=== PATIENT | female | born 1940 | race African-American/Black ===

== ENCOUNTER 2019-10-26 19:58 | Emergency (ER) | payer MEDICARE, MEDICAID ==
[2019-10-26] MEDS ORDERED: NORMAL SALINE 1000 ML 1,000 ML IV ONE (21:21)
--- NOTE | 2019-10-26 21:32 | ER Document Report ---
ED General - General Chief Complaint: Altered Mental Status Stated Complaint: POSSIBLE DEHYDRATION Time Seen by Provider: 10/26/19 21:20 Primary Care Provider: HUGH SCOTT MD [Primary Care Provider] - 10/28/19 TRAVEL OUTSIDE OF THE [place] IN LAST 30 DAYS: No - HPI Notes: Patient is an 79-year-old female with a history of hypertension, thyroid disease, dementia presents with son for possible altered mental status. Son states that she has not been eating all weekend and believes that she may be dehydrated. He noticed that she was acting a little "off." Patient's son ates that since they have been here she has been eating and drinking and is acting and behaving normally again. Patient has no concerns or complaints. She is not complaining of any pain. No recent illness. Per family/patient: Denies any headache, fever, head injury, neck pain, changes in vision/speech/hearing, URI, sore throat, chest pain, palpitations, syncope, cough, shortness of breath, wheeze, dyspnea, abdominal pain, nausea/vomiting/diarrhea, urinary retention, dysuria, hematuria, loss of control of bowel or bladder, numbness/tingling, saddle anesthesia, muscle paralysis/weakness, or rash. - Related Data Allergies/Adverse Reactions: No Known Allergies Allergy (Unverified 09/08/13 12:36) Home Medications: pt has meds Past Medical History - General Information source: Patient, Relative - Social History Smoking Status: Former Smoker Chew tobacco use (# tins/day): No Frequency of alcohol use: None Drug Abuse: None Family History: Reviewed & Not Pertinent Patient has suicidal ideation: No Patient has homicidal ideation: No - Past Medical History Cardiac Medical History: Reports: Hx Hypertension Denies: Hx Heart Attack Pulmonary Medical History: Denies: Hx Asthma Neurological Medical History: Denies: Hx Cerebrovascular Accident, Hx Seizures GI Medical History: Denies: Hx Hepatitis, Hx Hiatal Hernia, Hx Ulcer Infectious Medical History: Denies: Hx Hepatitis Past Surgical History: Denies: Hx Mastectomy, Hx Open Heart Surgery, Hx Pacemaker Review of Systems - Review of Systems -: Yes All other systems reviewed and negative Physical Exam - Vital signs Vitals: Temp Resp BP Pulse Ox 98.8 F 20 148/97 H 96 10/26/19 20:11 10/26/19 20:11 10/26/19 20:11 10/26/19 20:11 - Notes Notes: PHYSICAL EXAMINATION: GENERAL: Well-appearing, well-nourished and in no acute distress. A&Ox2. Answe rs questions appropriately. Pleasant, happy. HEAD: Atraumatic, normocephalic. Non-tender. EYES: Pupils equal round and reactive to light, extraocular movements intact, sclera anicteric, conjunctiva are normal. No nystagmus. ENT: Nares patent and without discharge. oropharynx clear without exudates. No tonsilar hypertrophy or erythema. Moist mucous membranes. NECK: Normal range of motion, supple without lymphadenopathy. No rigidity/meningismus. No midline tenderness. LUNGS: Breath sounds clear to auscultation bilaterally and equal. No wheezes rales or rhonchi. HEART: Regular rate and rhythm without murmurs, rubs, gallops. ABDOMEN: Soft, nontender, nondistended abdomen. No guarding, no rebound. Normal bowel sounds present. No CVA tenderness bilaterally. Musculoskeletal: Ext b/l: FROM to passive/active. Strength 5+/5. No deficits noted. No bony tenderness of extremities. Extremities: No cyanosis, clubbing, or edema b/l. Peripheral pulses 2+. Capillary refill less than 2 seconds. NEUROLOGICAL: NIH 0. GCS 15. Cranial nerves grossly intact. Normal speech. Normal sensory, motor exams. PSYCH: Normal mood, normal affect. SKIN: Warm, Dry, normal turgor, no rashes or lesions noted. Course - Re-evaluation Re-evalutation: 10/27/19 Patient is an afebrile, well-hydrated, 79-year-old female who presents with multifocal pneumonia. Vitals are acceptable without significant tachycardia, tachypnea, hypoxia. PE is otherwise unremarkable. Patient's lungs are generally clear to auscultation bilaterally. General labs are currently acceptable. Her thyroid lab/med will need further eval'd by her PCM for any possible med adjustment. Influenza negative. CT head unremarkable. Patient was given fluids through IV. She has been tolerating p.o. without difficulty and is nontoxic-appearing. CT with contrast was ordered of the chest after obtaining a chest x-ray which showed possible aneurysm and questionable bilateral opacities. CT does reveal findings suspicious for multifocal pneumonia. She does have a mid ascending thoracic aortic dilatation measuring 4 cm in the descending is mildly aneurysmal at 3.1 cm. Patient is otherwise not having any chest pain, shortness of breath, or dyspnea. She has not had any other URI symptoms or fever. Pt's presentation is not convincing for COVID. She also has no known exposures. Pt usually never leaves her home as is. Reviewed with Dr. Bruno who is in agreement with dispo/plan. Son feels competent to monitor at home. She does clinically meet inpatient management at this time. She is at baseline with her mentation/behavior. Son states he can call tomorrow to set up a f/u this week with her PCM. They are to return to the ED with any other worsening/concerning symptoms. Family in agreement. - Vital Signs Vital signs: Temp Pulse Resp BP Pulse Ox 98.8 F 72 20 150/89 H 96 10/26/19 20:11 10/26/19 23:09 10/26/19 23:09 10/26/19 23:09 10/26/19 23:09 - Laboratory Result Diagrams: 10/26/19 20:30 10/26/19 20:30 Laboratory results interpreted by me: 10/26/19 10/26/19 10/26/19 20:30 20:30 20:30 RBC 3.40 L Hgb 10.0 L Hct 30.5 L RDW 15.1 H BUN 47 H Creatinine 1.88 H Est GFR ( Amer) 31 L Est GFR (MDRD) Non-Af 26 L AST 44 H Albumin 3.4 L TSH 0.12 L Urine Protein Urine Urobilinogen Urine Ascorbic Acid 10/26/19 22:20 RBC Hgb Hct RDW BUN Creatinine Est GFR ( Amer) Est GFR (MDRD) Non-Af AST Albumin TSH Urine Protein 100 H Urine Urobilinogen 2.0 H Urine Ascorbic Acid 40 H Discharge - Discharge Clinical Impression: Multifocal pneumonia, Thoracic aortic aneurysm without rupture Condition: Stable Disposition: HOME, SELF-CARE Additional Instructions: Please bring your CT report to the family doctor for further management. Points include the mild thoracic aneurysm and bilateral multifocal pneumonia. She does have showing chronic kidney disease so we are using doxycycline as her antibiotic of choice at this time. Have the family doctor review her thyroid lab as well and see if med adjustment is necessary. Her vitals have been acceptable here. No fevers. Maintain adequate fluid intake tylenol/ibuprofen as needed alternating every 3 hours for fever/body ache over the counter cold medication as needed for symptoms Humidified air may help Wash your hands regularly Wear a mask when coughing F/u: with your PCM in 2-3 days for a recheck Return to the ED with any fever, altered mental status/behavior, chest pain, palpitations, syncope, headache, neck pain/stiffness, shortness of breath, chest pains, wheezing, drooling, trouble swallowing/breathing, abdominal pain, n/v/d, rash, or worsening/concerning symptoms otherwise. Prescriptions: Doxycycline Hyclate 100 mg PO BID #20 tablet.dr Forms: Elevated Blood Pressure Referrals: HUGH SCOTT MD [Primary Care Provider] - 10/28/19
[2019-10-26 21:34] LABS: ALBUMIN 3.4 g/dL (3.5-5.0); ALKALINE PHOSPHATASE 116 U/L (38-126); ANION GAP 7 (5-19); ASPARTATE AMINO TRANSFERASE 44 U/L (14-36); BILIRUBIN,DIRECT 0.2 mg/dL (0.0-0.4); BILIRUBIN,TOTAL 0.5 mg/dL (0.2-1.3); BLOOD UREA NITROGEN 47 mg/dL (7-20); CALCIUM 9.3 mg/dL (8.4-10.2); CARBON DIOXIDE 30 mmol/L (22-30); CHLORIDE 106 mmol/L (98-107); GLUCOSE 96 mg/dL (75-110); POTASSIUM 4.2 mmol/L (3.6-5.0); TOTAL PROTEIN 7.2 g/dL (6.3-8.2)
[2019-10-26 21:39] LABS: ABSOLUTE EOSINOPHILS # (AUTO) 0.3 10^3/uL (0.0-0.6); ABSOLUTE LYMPHOCYTES (AUTO) 1.5 10^3/uL (0.5-4.7); ABSOLUTE MONOCYTES (AUTO) 0.7 10^3/uL (0.1-1.4); ABSOLUTE NEUT (AUTO) 6.5 10^3/uL (1.7-8.2); BASOPHILS % (AUTO) 0.4 % (0-2); EOSINOPHILS % (AUTO) 2.9 % (0-6); HEMATOCRIT 30.5 % (36.0-47.0); LYMPHOCYTES % (AUTO) 16.5 % (13-45); MEAN CORPUSCULAR HEMOGLOBIN 29.5 pg (27.0-33.4); MEAN CORPUSCULAR HGB CONC 32.9 g/dL (32.0-36.0); MEAN CORPUSCULAR VOLUME 90 fl (80-97); MONOCYTES % (AUTO) 7.5 % (3-13); PLATELET COUNT 344 10^3/uL (150-450); RED CELL DISTRIBUTION WIDTH 15.1 % (11.5-14.0); SEGMENTED NEUTROPHILS % (AUTO) 72.7 % (42-78); TOTAL CELLS COUNTED % (AUTO) 100 %; WHITE BLOOD COUNT 8.9 10^3/uL (4.0-10.5)
--- NOTE | 2019-10-26 21:56 | RADIOLOGY REPORT (SQ) ---
EXAM DESCRIPTION: CT HEAD WITHOUT IV CONTRAST COMPLETED DATE/TME: 10/26/2019 21:20 CLINICAL HISTORY: 79 years, Female, altered mental status COMPARISON: None. TECHNIQUE: Noncontrast CT of the head was acquired. Coronal and sagittal reformations were created. Images stored on PACS. All CT scanners at this facility use dose modulation, iterative reconstruction, and/or weight based dosing when appropriate to reduce radiation dose to as low as reasonably achievable (ALARA). [facility]: Dose Right [facility]: CareDose [facility]: Dose Right [facility]: Teradose 4D [facility]: [employer] LIMITATIONS: None. FINDINGS: Evaluation of the brain parenchyma reveals mild periventricular and patchy subcortical white matter low attenuation. No acute intracranial hemorrhage, mass effect, or extra-axial fluid is seen. The ventricles and sulcal spaces are mildly enlarged. Globes and orbits show no acute abnormality. Paranasal sinuses and mastoid air cells are clear. Calcifications are evident about the parasellar carotid arteries. No depressed skull fractures. IMPRESSION: No acute intracranial hemorrhage or mass effect. Mild chronic microvascular ischemic change with generalized atrophy. TECHNICAL DOCUMENTATION: Quality ID # 436: Final reports with documentation of one or more dose reduction techniques (e.g., Automated exposure control, adjustment of the mA and/or kV according to patient size, use of iterative reconstruction technique) copyright 2011 [employer]- All Rights Reserved
--- NOTE | 2019-10-26 22:11 | RADIOLOGY REPORT (SQ) ---
Chest one view on 10/26/2019 at 9:32 PM CLINICAL INDICATION: Altered mental status COMPARISON: None FINDINGS: There is significant prominence and tortuosity of the thoracic aorta suggesting thoracic aortic aneurysm. CT of the chest with contrast would be useful to better evaluate. There are mild patchy bilateral opacities consistent with edema and/or pneumonia. Heart is upper limits of normal for size. Degenerative changes are noted in the shoulders. IMPRESSION: 1. Findings suggesting thoracic aortic aneurysm, follow-up chest CT with contrast would be useful to better evaluate. 2. Mild patchy bilateral opacities consistent with mild edema and/or pneumonia.
[2019-10-26 22:48] LABS: APPEARANCE,URINE SLIGHTLY-CLOUDY; BILIRUBIN,URINE NEGATIVE (NEGATIVE); COLOR,URINE YELLOW; GLUCOSE, URINE NEGATIVE (NEGATIVE); KETONES,URINE NEGATIVE (NEGATIVE); PROTEIN,URINE 100 mg/dL (NEGATIVE); URINE SPECIFIC GRAVITY 1.016
--- NOTE | 2019-10-26 23:21 | RADIOLOGY REPORT (SQ) ---
EXAM DESCRIPTION: CT CHEST WITH IV CONTRAST COMPLETED DATE/TME: 10/26/2019 22:17 CLINICAL HISTORY: 79 years, Female, possible aneurysm on XR, ?pneumonia COMPARISON: Chest radiograph performed earlier the same day TECHNIQUE: Contrast enhanced CT of the chest was acquired after the uneventful administration of 50 mL of Omnipaque 300 intravenous contrast. Images stored on PACS. All CT scanners at this facility use dose modulation, iterative reconstruction, and/or weight based dosing when appropriate to reduce radiation dose to as low as reasonably achievable (ALARA). [facility]: Dose Right [facility]: CareDose [facility]: Dose Right [facility]: Teradose 4D [facility]: [employer] LIMITATIONS: None. FINDINGS: Central airways are patent. Lung windows show right apical scarring. In addition, there are multifocal nodular consolidative opacities throughout both lungs with elements of peripheral groundglass. These opacities appear most pronounced within the upper lobes as well as the right lower lobe superior segment. Superimposed bandlike opacities are also evident, indicating areas of atelectasis and/or scar. Likewise, a few interspersed foci of nodular consolidation are evident, especially within the basilar segments of the left lower lobe on image 35 of series 3. These are also likely part of the same process. Mediastinal windows show no significant hilar or mediastinal lymph node enlargement. Calcifications are evident about the coronary vessels, aortic valve, and thoracic aorta. There is dilatation of the ascending thoracic aorta at its mid aspect, measuring up to 4 cm in short axis. In addition, the descending thoracic aorta is mildly aneurysmal, measuring 3.1 cm in short axis. Visualized pulmonary arterial vasculature appears opacify with contrast normally. Limited evaluation of the upper abdomen reveals postoperative changes of cholecystectomy. Scattered colonic diverticula are noted. In addition, there are calcifications about the visualized portions of the abdominal aorta. No additional suspicious findings are evident within the imaged upper abdomen. Bone windows show no destructive osseous lesions. IMPRESSION: Multifocal bilateral consolidative and groundglass opacity, most pronounced within both upper lobes as well as the right lower lobe superior segment. Overall, findings are most suspicious for multifocal pneumonia. Follow-up to clearing is recommended given that several of the opacities appear somewhat nodular, especially within the left lower lobe. Mild dilatation of the mid ascending thoracic aorta measuring up to 4 cm in short axis. Additionally, the descending thoracic aorta is mildly aneurysmal, measuring 3.1 cm in short axis. TECHNICAL DOCUMENTATION: Quality ID # 436: Final reports with documentation of one or more dose reduction techniques (e.g., Automated exposure control, adjustment of the mA and/or kV according to patient size, use of iterative reconstruction technique) copyright 2011 [employer] All Rights Reserved
[2019-10-27] MEDS ORDERED: DOXYCYCLINE HYCLATE 100 MG TABLET PO ONE (00:01)
[2019-10-27 00:54] LABS: A TYPE INFLUENZA AG NEGATIVE (NEGATIVE); B INFLUENZA AG NEGATIVE (NEGATIVE)
[2019-10-27 01:26] VITALS: BP 148/88
== END 2019-10-27 01:21 | disposition home or self-care (01) ==
LOC: ER 19:58
DX: J18.8 Other pneumonia, unspecified organism (principal); I71.2 Thoracic aortic aneurysm, without rupture; R41.82 Altered mental status, unspecified; I10 Essential (primary) hypertension
CPT/HCPCS: 99285; 96360; 36415; 84443; 85025; 80053; 81001; 84484; 87804; 71045; 70450; 71260; A9270; J7030

== ENCOUNTER 2019-11-11 10:31 | Emergency (ER) | payer MEDICARE, MEDICAID ==
--- NOTE | 2019-11-11 10:46 | ER Document Report ---
ED General - General Stated Complaint: ALTERED LOC Time Seen by Provider: 11/11/19 10:39 Primary Care Provider: HUGH SCOTT MD [Primary Care Provider] - Follow up as needed Mode of Arrival: Medic Information source: Relative, Emergency Med Personnel Cannot obtain history due to: Dementia TRAVEL OUTSIDE OF THE [place] IN LAST 30 DAYS: No - HPI Onset: Yesterday Onset/Duration: Persistent Quality of pain: No pain Pain Level: Denies Context: Patient is an 79-year-old female brought into the emergency department by EMS chief complaint of altered mental status. Review of systems and HPI from EMS personnel as well as the son who presented to the hospital. The son states yesterday morning the patient ate a good breakfast however shortly thereafter vomited everything that she ate and then became quite sleepy she slept basically all day yesterday until this morning. Patient's had increased sleep however decreased oral intake and activities. The son states that patient had something similar to this happen before and they found that she was dehydrated. Son also states the patient is on antibiotics secondary to recent finding of pneumonia. Associated symptoms: Vomiting, Slow to respond Exacerbated by: Denies Relieved by: Denies Similar symptoms previously: No Recently seen / treated by doctor: Yes - Related Data Allergies/Adverse Reactions: No Known Allergies Allergy (Unverified 09/08/13 12:36) Past Medical History - General Information source: Relative Cannot obtain history due to: Dementia - Social History Smoking Status: Unknown if Ever Smoked Chew tobacco use (# tins/day): No Frequency of alcohol use: None Drug Abuse: None Lives with: Family Family History: Reviewed & Not Pertinent Patient has suicidal ideation: No Patient has homicidal ideation: No - Past Medical History Cardiac Medical History: Reports: Hx Hypertension Denies: Hx Heart Attack Pulmonary Medical History: Denies: Hx Asthma Neurological Medical History: Denies: Hx Cerebrovascular Accident, Hx Seizures GI Medical History: Denies: Hx Hepatitis, Hx Hiatal Hernia, Hx Ulcer Infectious Medical History: Denies: Hx Hepatitis Past Surgical History: Denies: Hx Mastectomy, Hx Open Heart Surgery, Hx Pacemaker Review of Systems - Review of Systems -: Yes ROS unobtainable due to patient's medical condition Constitutional: See HPI EENT: No symptoms reported Cardiovascular: No symptoms reported Respiratory: No symptoms reported Gastrointestinal: See HPI Genitourinary: No symptoms reported Female Genitourinary: No symptoms reported Musculoskeletal: No symptoms reported Skin: No symptoms reported Hematologic/Lymphatic: No symptoms reported Neurological/Psychological: See HPI -: Yes All other systems reviewed and negative Physical Exam - Vital signs Vitals: Temp Pulse Resp BP Pulse Ox 97.4 F 77 18 149/75 H 95 11/11/19 10:50 11/11/19 10:50 11/11/19 10:50 11/11/19 10:50 11/11/19 10:50 - Notes Notes: PHYSICAL EXAMINATION: GENERAL: Well-appearing, well-nourished and in no acute distress. HEAD: Atraumatic, normocephalic. EYES: Pupils equal round and reactive to light, extraocular movements intact, sclera anicteric, conjunctiva are normal. ENT: nares patent, oropharynx clear without exudates. Dry mucous membranes. NECK: Normal range of motion, supple without lymphadenopathy, no appreciable JVD LUNGS: Lungs clear to auscultation bilaterally and equal. No wheezes rales or r honchi. HEART: Regular rate and rhythm, patient has a 4/6 systolic murmur best heard over the left mid chest. ABDOMEN: Soft, nontender, normal bowel sounds. No guarding, no rebound. No masses appreciated. EXTREMITIES: Active full range of motion, no pitting or edema. No cyanosis. 2+ pulses x4 NEUROLOGICAL: No focal neurological deficits. Moves all extremities spontaneously. Patient is alert to herself but otherwise shows signs of dementia does not follow all commands and definitely does not respond appropriately verbally. SKIN: Warm, Dry, and intact. Normal turgor, no rashes or lesions noted. Course - Re-evaluation Re-evalutation: 11/11/19 14:08 Patient has been reevaluated several times while in the emergency department after the fluids the patient seems much more alert and oriented. I have reviewed the patient's laboratory studies and find no significant abnormalities. Patient's son is agreeable with outpatient management through her primary care provider. Patient will be discharged home in stable condition. Clinical impression of altered mental status secondary to dehydration as well as nausea and vomiting. - Vital Signs Vital signs: Temp Pulse Resp BP Pulse Ox 97.4 F 77 18 149/75 H 95 11/11/19 10:50 11/11/19 10:50 11/11/19 10:50 11/11/19 10:50 11/11/19 10:50 - Laboratory Result Diagrams: 11/11/19 10:06 11/11/19 10:06 Laboratory results interpreted by me: 11/11/19 11/11/19 11/11/19 10:06 10:06 12:01 RBC 3.29 L Hgb 9.8 L Hct 29.6 L RDW 15.9 H Carbon Dioxide 31 H BUN 56 H Creatinine 2.43 H Est GFR ( Amer) 23 L Est GFR (MDRD) Non-Af 19 L AST 39 H Ur Leukocyte Esterase SMALL H Urine Ascorbic Acid 40 H - Diagnostic Test Radiology reviewed: Reports reviewed Discharge - Discharge Clinical Impression: Dehydration Nausea and vomiting Qualifiers: Vomiting type: unspecified Vomiting Intractability: non-intractable Qualified Code(s): R11.2 - Nausea with vomiting, unspecified Altered mental status Qualifiers: Altered mental status type: somnolence Qualified Code(s): R40.0 - Somnolence Condition: Stable Disposition: HOME, SELF-CARE Instructions: Antinausea Medication ([facility]), Vomiting ([facility]) Prescriptions: Ondansetron [Zofran Odt 4 mg Tablet] 1 - 2 tab PO Q4H PRN #15 tab.rapdis PRN Reason: For Nausea/Vomiting Referrals: HUGH SCOTT MD [Primary Care Provider] - Follow up as needed
[2019-11-11 10:51] VITALS: BP 149/75
[2019-11-11 11:19] LABS: ABSOLUTE BASOPHILS # (AUTO) 0.1 10^3/uL (0.0-0.2); ABSOLUTE EOSINOPHILS # (AUTO) 0.2 10^3/uL (0.0-0.6); ABSOLUTE LYMPHOCYTES (AUTO) 1.9 10^3/uL (0.5-4.7); ABSOLUTE MONOCYTES (AUTO) 0.6 10^3/uL (0.1-1.4); ABSOLUTE NEUT (AUTO) 4.4 10^3/uL (1.7-8.2); BASOPHILS % (AUTO) 0.7 % (0-2); EOSINOPHILS % (AUTO) 3.2 % (0-6); HEMATOCRIT 29.6 % (36.0-47.0); HEMOGLOBIN 9.8 g/dL (12.0-15.5); LYMPHOCYTES % (AUTO) 26.3 % (13-45); MEAN CORPUSCULAR HEMOGLOBIN 29.8 pg (27.0-33.4); MEAN CORPUSCULAR HGB CONC 33.1 g/dL (32.0-36.0); MEAN CORPUSCULAR VOLUME 90 fl (80-97); PLATELET COUNT 375 10^3/uL (150-450); RED BLOOD COUNT 3.29 10^6/uL (3.72-5.28); RED CELL DISTRIBUTION WIDTH 15.9 % (11.5-14.0); SEGMENTED NEUTROPHILS % (AUTO) 61.8 % (42-78); TOTAL CELLS COUNTED % (AUTO) 100 %; WHITE BLOOD COUNT 7.1 10^3/uL (4.0-10.5)
[2019-11-11 11:21] LABS: ALBUMIN 3.5 g/dL (3.5-5.0); ALKALINE PHOSPHATASE 113 U/L (38-126); ANION GAP 8 (5-19); ASPARTATE AMINO TRANSFERASE 39 U/L (14-36); BILIRUBIN,DIRECT 0.3 mg/dL (0.0-0.4); BILIRUBIN,TOTAL 0.3 mg/dL (0.2-1.3); BLOOD UREA NITROGEN 56 mg/dL (7-20); CALCIUM 9.9 mg/dL (8.4-10.2); CARBON DIOXIDE 31 mmol/L (22-30); CHLORIDE 103 mmol/L (98-107); CREATINE KINASE 48 U/L (30-135); GLUCOSE 100 mg/dL (75-110); POTASSIUM 4.9 mmol/L (3.6-5.0); TOTAL PROTEIN 7.7 g/dL (6.3-8.2)
--- NOTE | 2019-11-11 11:27 | RADIOLOGY REPORT (SQ) ---
EXAM DESCRIPTION: CT HEAD WITHOUT IMAGES COMPLETED DATE/TIME: 11/11/2019 11:15 am REASON FOR STUDY: ams COMPARISON: 10/26/2019 TECHNIQUE: Axial images acquired through the brain without intravenous contrast. Images reviewed wi th bone, brain and subdural windows. Additional sagittal and coronal reconstructions were generated. Images stored on PACS. All CT scanners at this facility use dose modulation, iterative reconstruction, and/or weight based d osing when appropriate to reduce radiation dose to as low as reasonably achievable (ALARA). [facility]: Dose Right [facility]: CareDose [facility]: Dose Right [facility]: Teradose 4D [facility]: [place] RADIATION DOSE: CT Rad equipment meets quality standard of care and radiation dose reduction techniq ues were employed. CTDIvol: 53.2 mGy. DLP: 1097 mGy-cm.mGy. LIMITATIONS: None. FINDINGS: VENTRICLES: Prominent. CEREBRUM: No masses. No hemorrhage. No midline shift. Areas of low density in the white matter mos t likely due to chronic micro-vascular ischemic change. No evidence for acute infarction. CEREBELLUM: No masses. No hemorrhage. No alteration of density. No evidence for acute infarction. EXTRAAXIAL SPACES: Age-related involutional change. No fluid collections. No masses. ORBITS AND GLOBE: No intra- or extraconal masses. Normal contour of globe without masses. CALVARIUM: No fracture. PARANASAL SINUSES: No fluid or mucosal thickening. SOFT TISSUES: No mass or hematoma. OTHER: No other significant finding. IMPRESSION: CHRONIC CHANGES OF ATROPHY AND MICROVASCULAR ISCHEMIA. NO ACUTE PROCESS. EVIDENCE OF ACUTE STROKE: NO. TECHNICAL DOCUMENTATION: JOB ID: [id number] Quality ID # [id number]: Final reports with documentation of one or more dose reduction techniques (e.g., Au tomated exposure control, adjustment of the mA and/or kV according to patient size, use of iterative reconstruction technique) 2010 [employer]- All Rights Reserved Reading location - IP/workstation name: [email or web address]
--- NOTE | 2019-11-11 12:10 | RADIOLOGY REPORT (SQ) ---
EXAM DESCRIPTION: CHEST SINGLE VIEW IMAGES COMPLETED DATE/TIME: 11/11/2019 11:42 am REASON FOR STUDY: ams COMPARISON: 10/26/2019 EXAM PARAMETERS: NUMBER OF VIEWS: One view. TECHNIQUE: Single frontal radiographic view of the chest acquired. RADIATION DOSE: NA LIMITATIONS: None. FINDINGS: LUNGS AND PLEURA: Slight increase in patchy bilateral alveolar airspace disease. No effus ions. MEDIASTINUM AND HILAR STRUCTURES: No masses. Contour normal. HEART AND VASCULAR STRUCTURES: Heart size is stable. Dilatation of the thoracic aorta is again noted . BONES: No acute findings. HARDWARE: None in the chest. OTHER: No other significant finding. IMPRESSION: Increasing bilateral alveolar airspace disease. TECHNICAL DOCUMENTATION: JOB ID: [id number] 2010 [employer]- All Rights Reserved Reading location - IP/workstation name: [email or web address]
[2019-11-11 12:19] LABS: APPEARANCE,URINE SLIGHTLY-CLOUDY; BILIRUBIN,URINE NEGATIVE (NEGATIVE); COLOR,URINE YELLOW; GLUCOSE, URINE NEGATIVE (NEGATIVE); KETONES,URINE NEGATIVE (NEGATIVE); LEUKOCYTE ESTERASE,URINE SMALL (NEGATIVE); NITRITE,URINE NEGATIVE (NEGATIVE); PROTEIN,URINE NEGATIVE (NEGATIVE); URINE SPECIFIC GRAVITY 1.017; UROBILINOGEN,URINE NEGATIVE mg/dL (<2.0)
[2019-11-11] MEDS ORDERED: NORMAL SALINE 1000 ML 1,000 ML IV ONE (13:09)
--- NOTE | 2019-11-11 16:23 | EKG REPORT ---
SEVERITY:- ABNORMAL ECG - SINUS ARRHYTHMIA, RATE 51-79 PROBABLE INFERIOR INFARCT, AGE INDETERMINATE CONSIDER ANTERIOR INFARCT : Confirmed by: Hai Mejia 11-Nov-2019 16:22:31
== END 2019-11-11 15:08 | disposition home or self-care (01) ==
LOC: ER 10:31
DX: E86.0 Dehydration (principal); R40.0 Somnolence; R11.2 Nausea with vomiting, unspecified; F03.90 Unspecified dementia, unspecified severity, without behavioral disturbance, psychotic disturbance, mood disturbance, and anxiety; J18.9 Pneumonia, unspecified organism; I10 Essential (primary) hypertension
CPT/HCPCS: 93005; 99285; 96360; 51701; 36415; 82550; 85025; 80053; 81001; 84484; 71045; 70450; 93010; J7030

== ENCOUNTER 2020-04-27 09:48 | Emergency (ER) | payer MEDICARE, MEDICAID ==
[2020-04-27 11:06] LABS: ABSOLUTE EOSINOPHILS # (AUTO) 0.3 10^3/uL (0.0-0.6); ABSOLUTE LYMPHOCYTES (AUTO) 1.7 10^3/uL (0.5-4.7); ABSOLUTE MONOCYTES (AUTO) 0.6 10^3/uL (0.1-1.4); ABSOLUTE NEUT (AUTO) 4.1 10^3/uL (1.7-8.2); BASOPHILS % (AUTO) 0.6 % (0-2); HEMATOCRIT 35.2 % (36.0-47.0); HEMOGLOBIN 11.9 g/dL (12.0-15.5); LYMPHOCYTES % (AUTO) 25.4 % (13-45); MEAN CORPUSCULAR HEMOGLOBIN 32.3 pg (27.0-33.4); MEAN CORPUSCULAR HGB CONC 33.7 g/dL (32.0-36.0); MEAN CORPUSCULAR VOLUME 96 fl (80-97); PLATELET COUNT 244 10^3/uL (150-450); RED BLOOD COUNT 3.68 10^6/uL (3.72-5.28); RED CELL DISTRIBUTION WIDTH 15.2 % (11.5-14.0); TOTAL CELLS COUNTED % (AUTO) 100 %; WHITE BLOOD COUNT 6.8 10^3/uL (4.0-10.5)
--- NOTE | 2020-04-27 11:07 | ER Document Report ---
ED General - General Chief Complaint: Probable Seizure Stated Complaint: POSSIBLE SEIZURE Time Seen by Provider: 04/27/20 10:14 Primary Care Provider: HUGH SCOTT MD [Primary Care Provider] - Follow up as needed TRAVEL OUTSIDE OF THE [place] IN LAST 30 DAYS: No - HPI Notes: Chief complaint: Seizure History of present illness: 79-year-old female with history of dementia of moderate severity transported here via EMS for evaluation of new onset seizure activity. Son who is her primary oncology consultant states that they were getting her dressed this morning to go to a routine ophthalmology appointment. Patient had become aggravated with her caregivers and was fussing about having to get dressed. At that point she went into what they describe as a generalized tonic- clonic seizure which lasted about 3 minutes. She was incontinent of urine. She remained postictal for about 15 minutes thereafter. She is now back to her usual baseline. She has not had any vomiting, fever, cough or dysuria. They reemphasized that she has had no prior history of seizures. There is no history of any head trauma. - Related Data Allergies/Adverse Reactions: No Known Allergies Allergy (Unverified 09/08/13 12:36) Past Medical History - General Information source: Patient, Relative, [facility] Records Cannot obtain history due to: Dementia - Social History Smoking Status: Never Smoker Frequency of alcohol use: None Drug Abuse: None Family History: Reviewed & Not Pertinent - Past Medical History Cardiac Medical History: Reports: Hx Hypertension Denies: Hx Heart Attack Pulmonary Medical History: Denies: Hx Asthma Neurological Medical History: Reports: Other - Dementia. Denies: Hx Cerebrovas cular Accident, Hx Seizures GI Medical History: Denies: Hx Hepatitis, Hx Hiatal Hernia, Hx Ulcer Infectious Medical History: Denies: Hx Hepatitis Past Surgical History: Denies: Hx Mastectomy, Hx Open Heart Surgery, Hx Pacemak er Review of Systems - Review of Systems -: Yes ROS unobtainable due to patient's medical condition Physical Exam - Vital signs Vitals: Resp 22 H 04/27/20 10:00 - Notes Notes: GENERAL: Frail elderly female appearing in no acute distress. SKIN: Good turgor no rashes. HEAD: Normocephalic atraumatic. EYES: PERRLA. EOMI. Conjunctivae and sclerae clear. EARS: CANALS AND TMS CLEAR. NOSE: CLEAR. MOUTH: Moist mucosa. Good dentition. No stridor or edema. No drooling. NECK: Supple. No masses or thyromegaly. No adenopathy. Carotids 2+ without bruits. No JVD. BACK: Symmetrical without tenderness. CHEST: Respirations unlabored. Breath sounds clear and symmetrical. HEART: Regular rhythm. Grade 3 systolic murmur right second interspace without radiation. ABDOMEN: Soft nontender without masses, organomegaly or rebound. Bowel sounds normally active. No bruits. GENITALIA: Deferred. EXTREMITIES: No edema. No calf tenderness. Cap refill less than 1.5 seconds. Dorsalis pedis and posterior tibial pulses 3+ and symmetrical. NEUROLOGICAL: Now back at neurologic baseline per family member. She is oriented to person but not place or time. She is moving all 4 extremities symmetrically and follows commands appropriately. No obvious sensory deficit. PSYCHIATRIC: Appropriate affect. Course - Re-evaluation Re-evalutation: 04/27/20 14:43 The patient's son who is an excellent historian clearly observe new onset of gen eralized seizure activity with transient altered mental status, generalized tremor and urinary incontinence followed by postictal interval. Patient was back to her baseline neurologic status by time of arrival here. She had been upset emotionally prior to the episode but otherwise showed no other new problems or symptoms. Specifically she did not have any fever vomiting shortness of breath, cough or dysuria reported. She has been eating and drinking normally there have been no trauma. Neurologic exam was nonfocal here. The head CT showed chronic microvascular changes. Chest x-ray urinalysis were normal. Her comprehensive metabolic profile was remarkable for some mild renal insufficiency and this is actually better than on prior studies. On her CBC we noted that she has a mild anemia with hemoglobin about 11.8 g but again this is better than on prior studies. White count was not elevated. Patient was given IV Keppra here. Her EKG did not show any new changes. I talked with the son at some length and we agree that she is stable to go home and will be started on oral Keppra. Findings, clinical impression and plan of treatment have been discussed with patient/family. Understanding of current findings and recommendations has been acknowledged by them and there is agreement regarding disposition and follow-up. - Vital Signs Vital signs: Temp Pulse Resp BP Pulse Ox 98.7 F 24 H 199/170 H 97 04/27/20 10:19 04/27/20 13:01 04/27/20 13:01 04/27/20 10:30 - Laboratory Result Diagrams: 04/27/20 10:00 04/27/20 10:00 Laboratory results interpreted by me: 04/27/20 04/27/20 04/27/20 10:00 10:00 10:20 RBC 3.68 L Hgb 11.9 L Hct 35.2 L RDW 15.2 H BUN 40 H Creatinine 1.86 H Est GFR ( Amer) 31 L Est GFR (MDRD) Non-Af 26 L Glucose 117 H Magnesium 2.6 H AST 41 H Urine Protein 100 H Leukocyte Esterase Rfl TRACE H Urine Ascorbic Acid 40 H - Diagnostic Test Radiology reviewed: Reports reviewed - Noncontrast CT head per radiologist: Microvascular changes only. - EKG Interpretation by Me Additional EKG results interpreted by me: 04/27/20 14:41 Twelve-lead EKG reviewed by me contemporaneously: 1006 hrs. Indication for study: Seizure Rhythm: Normal sinus Rate: 85 Intervals: Borderline QT prolongation with QTC 486 ms. QRS axis: Leftward -[address]/T wave changes: Nonspecific T wave changes only. Comparison with prior tracing: Compared with prior study 11/11/2019 with no significant interval change Interpretation: Normal sinus rhythm with borderline QT prolongation and nonspecific T wave changes. Discharge - Discharge Clinical Impression: Seizure new onset, Dementia Condition: Stable Disposition: HOME, SELF-CARE Additional Instructions: Seizure You have had a seizure. Seizure disorders (epilepsy) of one sort or another affect about one out of 50 people. The seizure occurs because of abnormal electrical activity in the brain. Seizures may be due to drugs and alcohol, strokes, brain injury, or infect ion. In the most common form of epilepsy, no cause can be found. You will require further evaluation to determine the cause of your seizure, and to determine whether anti-seizure medication is required. This follow-up testing is important, so please call us if you encounter problems with scheduling of tests or appointments. YOU SHOULD NOT DRIVE until released to do so by your physician. The law requires that seizures be reported to the rear load truck driver's license bureau--a seizure while driving could be catastrophic. Call the doctor if seizures recur, or if you develop new symptoms such as f ever, severe headache, stiff neck, confusion or increasing sleepiness, weakness or numbness, or visual problems. Return here as needed for new or worsening symptoms. Take prescribed medication as directed and continue all previously prescribed medications. Follow-up with your primary physician within the next 7 days. Prescriptions: Levetiracetam [Keppra 500 mg Tablet] 500 mg PO Q12 30 Days #60 tablet Referrals: HUGH SCOTT MD [Primary Care Provider] - Follow up as needed
[2020-04-27 11:13] LABS: ALBUMIN 3.8 g/dL (3.5-5.0); ALKALINE PHOSPHATASE 98 U/L (38-126); ANION GAP 11 (5-19); ASPARTATE AMINO TRANSFERASE 41 U/L (14-36); BILIRUBIN,DIRECT 0.3 mg/dL (0.0-0.4); BILIRUBIN,TOTAL 0.4 mg/dL (0.2-1.3); BLOOD UREA NITROGEN 40 mg/dL (7-20); CALCIUM 9.6 mg/dL (8.4-10.2); CARBON DIOXIDE 26 mmol/L (22-30); CHLORIDE 104 mmol/L (98-107); GLUCOSE 117 mg/dL (75-110); POTASSIUM 4.6 mmol/L (3.6-5.0); TOTAL PROTEIN 7.5 g/dL (6.3-8.2)
--- NOTE | 2020-04-27 11:39 | RADIOLOGY REPORT (SQ) ---
EXAM DESCRIPTION: CHEST SINGLE VIEW IMAGES COMPLETED DATE/TIME: 04/27/2020 11:15 am REASON FOR STUDY: seizure COMPARISON: 11/11/2019 NUMBER OF VIEWS: One view. TECHNIQUE: Single frontal radiographic view of the chest acquired. LIMITATIONS: None. FINDINGS: LUNGS AND PLEURA: No opacities, masses or pneumothorax. No pleural effusion. MEDIASTINUM AND HILAR STRUCTURES: No masses. Contour normal. HEART AND VASCULAR STRUCTURES: Heart enlarged without failure. Normal vasculature. BONES: No acute findings. HARDWARE: None in the chest. OTHER: No other significant finding. IMPRESSION: HEART ENLARGED WITHOUT FAILURE. NO OTHER SIGNIFICANT RADIOGRAPHIC FINDING IN THE CHEST. TECHNICAL DOCUMENTATION: JOB ID: [id number] 2010 [employer]- All Rights Reserved Reading location - IP/workstation name: [email or web address]
[2020-04-27 11:43] LABS: APPEARANCE,URINE CLEAR; BILIRUBIN,URINE NEGATIVE (NEGATIVE); COLOR,URINE YELLOW; GLUCOSE, URINE NEGATIVE (NEGATIVE); KETONES,URINE NEGATIVE (NEGATIVE); PROTEIN,URINE 100 mg/dL (NEGATIVE); URINE SPECIFIC GRAVITY 1.015; UROBILINOGEN,URINE NEGATIVE mg/dL (<2.0)
--- NOTE | 2020-04-27 12:39 | RADIOLOGY REPORT (SQ) ---
EXAM DESCRIPTION: CT HEAD WITHOUT IMAGES COMPLETED DATE/TIME: 04/27/2020 12:30 pm REASON FOR STUDY: seizure COMPARISON: 11/11/2019 TECHNIQUE: Axial images acquired through the brain without intravenous contrast. Images reviewed wi th bone, brain and subdural windows. Additional sagittal and coronal reconstructions were generated. Images stored on PACS. All CT scanners at this facility use dose modulation, iterative reconstruction, and/or weight based d osing when appropriate to reduce radiation dose to as low as reasonably achievable (ALARA). [facility]: Dose Right [facility]: CareDose [facility]: Dose Right [facility]: Teradose 4D [facility]: [employer] RADIATION DOSE: CT Rad equipment meets quality standard of care and radiation dose reduction techniq ues were employed. CTDIvol: 53.2 mGy. DLP: 937 mGy-cm.mGy. LIMITATIONS: None. FINDINGS: VENTRICLES: Prominent. CEREBRUM: No masses. No hemorrhage. No midline shift. Areas of low density in the white matter mos t likely due to chronic micro-vascular ischemic change. No evidence for acute infarction. CEREBELLUM: No masses. No hemorrhage. No alteration of density. No evidence for acute infarction. EXTRAAXIAL SPACES: Age-related involutional change. No fluid collections. No masses. ORBITS AND GLOBE: No intra- or extraconal masses. Normal contour of globe without masses. CALVARIUM: No fracture. PARANASAL SINUSES: No fluid or mucosal thickening. SOFT TISSUES: No mass or hematoma. OTHER: No other significant finding. IMPRESSION: CHRONIC CHANGES OF ATROPHY AND MICROVASCULAR ISCHEMIA. NO ACUTE PROCESS. EVIDENCE OF ACUTE STROKE: NO. TECHNICAL DOCUMENTATION: JOB ID: [id number] Quality ID # [id number]: Final reports with documentation of one or more dose reduction techniques (e.g., Au tomated exposure control, adjustment of the mA and/or kV according to patient size, use of iterative reconstruction technique) 2010 [employer]- All Rights Reserved Reading location - IP/workstation name: [email or web address]
[2020-04-27] MEDS ORDERED: LEVETIRACETAM 1000 MG/NACL-ISO 1,000 MG/100 ML RTUPB IV ONE (13:16)
[2020-04-27 16:21] VITALS: BP 176/116
--- NOTE | 2020-04-28 00:53 | EKG REPORT ---
SEVERITY:- ABNORMAL ECG - SINUS RHYTHM FIRST DEGREE AV BLOCK PROBABLE LEFT VENTRICULAR HYPERTROPHY CONSIDER ANTERIOR INFARCT ABNORMAL T, CONSIDER ISCHEMIA, INFERIOR LEADS BORDERLINE PROLONGED QT INTERVAL : Confirmed by: Hai Mejia 28-Apr-2020 00:52:11
== END 2020-04-27 16:19 | disposition home or self-care (01) ==
LOC: ER 09:48
DX: R56.9 Unspecified convulsions (principal); R32 Unspecified urinary incontinence; F03.90 Unspecified dementia, unspecified severity, without behavioral disturbance, psychotic disturbance, mood disturbance, and anxiety; N28.9 Disorder of kidney and ureter, unspecified; D64.9 Anemia, unspecified; I10 Essential (primary) hypertension
CPT/HCPCS: 93005; 99285; 96374; 36415; 87086; 83735; 85025; 80053; 81001; 71045; 70450; 93010; J1953

== ENCOUNTER → 2020-06-14 | Outpatient (CLI) | payer MEDICARE, MEDICAID ==
[2020-06-14 12:17] LABS: HEMATOCRIT 37.6 % (36.0-47.0); HEMOGLOBIN 12.5 g/dL (12.0-15.5); MEAN CORPUSCULAR HEMOGLOBIN 31.4 pg (27.0-33.4); MEAN CORPUSCULAR HGB CONC 33.2 g/dL (32.0-36.0); MEAN CORPUSCULAR VOLUME 95 fl (80-97); PLATELET COUNT 260 10^3/uL (150-450); RED BLOOD COUNT 3.97 10^6/uL (3.72-5.28); RED CELL DISTRIBUTION WIDTH 14.1 % (11.5-14.0); WHITE BLOOD COUNT 5.6 10^3/uL (4.0-10.5)
[2020-06-14 12:33] LABS: ALBUMIN 3.8 g/dL (3.5-5.0); ANION GAP 10 (5-19); BLOOD UREA NITROGEN 33 mg/dL (7-20); CALCIUM 9.6 mg/dL (8.4-10.2); CARBON DIOXIDE 27 mmol/L (22-30); CHLORIDE 105 mmol/L (98-107); GLUCOSE 128 mg/dL (75-110); PHOSPHORUS 3.6 mg/dL (2.5-4.5); POTASSIUM 4.3 mmol/L (3.6-5.0)
[2020-06-14 13:04] LABS: APPEARANCE,URINE TURBID; BILIRUBIN,URINE NEGATIVE (NEGATIVE); COLOR,URINE YELLOW; GLUCOSE, URINE NEGATIVE (NEGATIVE); KETONES,URINE NEGATIVE (NEGATIVE); LEUKOCYTE ESTERASE,URINE LARGE (NEGATIVE); NITRITE,URINE NEGATIVE (NEGATIVE); PROTEIN,URINE 30 mg/dL (NEGATIVE); UROBILINOGEN,URINE NEGATIVE mg/dL (<2.0)
[2020-06-15 14:37] LABS: CREATININE URINE 77.2 mg/dL (Not Estab.); MICROALBUMIN URINE 128.5 ug/mL (Not Estab.)
== END ==
LOC: OD 11:37
PROVIDERS: ATTEND Physician Assistant Medical
DX: N39.0 Urinary tract infection, site not specified (principal); N18.4 Chronic kidney disease, stage 4 (severe)
CPT/HCPCS: 36415; 80069; 81001; 82043; 82570; 83970; 85027; 87086; 87088; 87186